=== PATIENT | female | born 1995 | race African-American/Black ===

== ENCOUNTER 2016-11-16 00:58 | Emergency (ER) | payer OTHER ==
[2016-11-16 01:12] VITALS: PULSE 100; O2SAT 99
[2016-11-16] MEDS ORDERED: Marcaine 0.5%/Epinephrine 10 ML IJ ONE (01:17)
[2016-11-16] MEDS ORDERED: BACIGUENT PACKET TP ONE (01:17)
[2016-11-16] MEDS ORDERED: Marcaine 0.5%/Epinephrine 10 ML ONE (01:24)
[2016-11-16] MEDS ORDERED: BACIGUENT PACKET ONE (01:24)
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
[2016-11-16] MEDS ORDERED: TYLENOL 325 MG PO STA (02:27)
[2016-11-16] MEDS ORDERED: TYLENOL 325 MG ONE (02:28)
[2016-11-16 03:05] VITALS: BP 134/68
== END 2016-11-16 02:58 | disposition home or self-care (01) ==
LOC: ED 00:58
PROC: 08QQXZZ Repair Right Lower Eyelid, External Approach (ICD-10-PCS; principal; 2016-11-16)
DX: S00.11XA Contusion of right eyelid and periocular area, initial encounter (principal); S01.81XA Laceration without foreign body of other part of head, initial encounter; S00.412A Abrasion of left ear, initial encounter; Y04.0XXA Assault by unarmed brawl or fight, initial encounter
CPT/HCPCS: 12013; 99283; 99284; A9270-GY

== ENCOUNTER 2016-11-21 16:15 | Emergency (ER) | payer OTHER ==
[2016-11-21 16:24] VITALS: BP 133/81
--- NOTE | 2016-11-21 16:39 | ERPHSYRPT ---
- History of Present Illness Time Seen by Provider: 11/21/16 16:29 Source: patient Exam Limitations: no limitations Patient Subjective Stated Complaint: here for suture removal Triage Nursing Assessment: pt has sutures below right eye, happened 7 days ago Physician History: The patient presents for removal of sutures under her right eye that were placed 7 days ago. She states her instructions wanted her to have them taken out in 3-5 days. Timing/Duration: day(s) (7) Quality: itchy Severity: mild Location: face Possible Causes: other (sutures) Associated Symptoms: denies symptoms Allergies/Adverse Reactions: No Known Drug Allergies Allergy (Verified 11/21/16 16:26) Home Medications: No Reportable Medications [No Reported Medications] 11/16/16 [History] Hx Tetanus, Diphtheria Vaccination/Date Given: Yes Hx Influenza Vaccination/Date Given: No Hx Pneumococcal Vaccination/Date Given: No Immunizations Up to Date: Yes - Review of Systems Constitutional: No Fever, No Chills Eyes: No Symptoms Ears, Nose, & Throat: No Symptoms Respiratory: No Cough, No Dyspnea Cardiac: No Chest Pain, No Edema, No Syncope Abdominal/Gastrointestinal: No Symptoms Genitourinary Symptoms: No Dysuria Musculoskeletal: No Back Pain, No Neck Pain Skin: Skin Lesions Neurological: No Symptoms Psychological: No Symptoms Endocrine: No Symptoms Hematologic/Lymphatic: No Symptoms Immunological/Allergic: No Symptoms All Other Systems: Reviewed and Negative - Past Medical History Pertinent Past Medical History: No - Past Surgical History Past Surgical History: Yes Other Surgical History: D AND C - Social History Smoking Status: Current every day smoker Exposure to second hand smoke: Yes Alcohol Use: Socially Drug Use: none Patient Lives Alone: No Significant Family History: no pertinent family hx - Female History Hx Last Menstrual Period: sep Hx Now: No - Nursing Vital Signs Nursing Vital Signs: Initial Vital Signs Temperature 97.6 F Temperature Source Oral Pulse Rate 55 Respiratory Rate 16 Blood Pressure [Right Arm] 133/81 Pain Intensity 0 - Physical Exam General Appearance: no apparent distress, alert Eye Exam: PERRL/EOMI Ears, Nose, Throat Exam: normal ENT inspection, pharynx normal, moist mucous membranes Neck Exam: normal inspection, non-tender, supple, full range of motion Respiratory Exam: normal breath sounds, lungs clear, No respiratory distress Cardiovascular Exam: regular rate/rhythm, normal heart sounds Gastrointestinal/Abdomen Exam: soft, mass, No tenderness Pelvic Exam: not done Rectal Exam: not done Back Exam: normal inspection, normal range of motion, No CVA tenderness, No vertebral tenderness Extremity Exam: normal inspection, normal range of motion Neurologic Exam: alert, oriented x 3, cooperative, normal mood/affect, sensation nml, No motor deficits Skin Exam: laceration (healing lac with running suture under right eye.) SpO2 Interpretation: normal SpO2: 94 Oxygen Delivery: Room Air - Progress Progress: unchanged - Departure Time of Disposition: 16:44 Departure Disposition: Home Clinical Impression: Healing laceration Condition: Stable Critical Care Time: No Additional Instructions: You have a facial laceration that is in the early stages of healing with a running suture in place. I recommend that she wait 2 more days before the sutures are removed.
[2016-11-21 16:57] VITALS: PULSE 78; O2SAT 97
== END 2016-11-21 16:57 | disposition home or self-care (01) ==
LOC: ED 16:15
DX: Z48.01 Encounter for change or removal of surgical wound dressing (principal)
CPT/HCPCS: 99281

== ENCOUNTER 2016-11-26 08:11 | Emergency (ER) | payer OTHER ==
[2016-11-26 08:24] VITALS: O2SAT 100
--- NOTE | 2016-11-26 09:18 | ERPHSYRPT ---
- History of Present Illness Time Seen by Provider: 11/26/16 08:51 Source: patient Patient Subjective Stated Complaint: stitches out Triage Nursing Assessment: stitches to below rt eye. well approximated- no drainage. Physician History: CC: wound check Hx: 21 y/o patient had 7 sutures placed under right eye on the infraorbital area per Dr Damon 10 days ago. She has done well. Tetanus up to date. No diploplia or blurred vision. No headaches or neck pain. Wound doing well. She came earlier in the week and was told to wait for suture removal. Allergies/Adverse Reactions: No Known Drug Allergies Allergy (Verified 11/26/16 08:24) Home Medications: No Reportable Medications [No Reported Medications] 11/16/16 [History] Hx Tetanus, Diphtheria Vaccination/Date Given: Yes Hx Influenza Vaccination/Date Given: No Hx Pneumococcal Vaccination/Date Given: No Immunizations Up to Date: Yes - Review of Systems Constitutional: No Fever Eyes: No Vision Changes, No Double Vision - Past Medical History Pertinent Past Medical History: No - Past Surgical History Past Surgical History: Yes Other Surgical History: D AND C - Social History Smoking Status: Current every day smoker Exposure to second hand smoke: No Alcohol Use: Socially Drug Use: none Patient Lives Alone: No Significant Family History: no pertinent family hx - Female History Hx Last Menstrual Period: 09/20 Hx Now: No - Nursing Vital Signs Nursing Vital Signs: Initial Vital Signs Temperature 98.7 F Temperature Source Oral Pulse Rate 60 Respiratory Rate 18 Blood Pressure [Right Arm] 110/68 Pain Intensity 0 - Physical Exam General Appearance: alert Eye Exam: PERRL/EOMI Ears, Nose, Throat Exam: moist mucous membranes Neck Exam: supple, No midline tenderness Neurologic Exam: alert, oriented x 3, cooperative Skin Exam: warm, dry, other (well healed laceration right cheek infraorbital area. Tiny 6-0 sutures removed per RN. Wound has no signo of infection.) SpO2: 100 Oxygen Delivery: Room Air - Course Nursing assessment & vital signs reviewed: Yes - Progress Progress Note: 11/26/16 09:19 Wound instr given. - Departure Time of Disposition: 09:19 Departure Disposition: Home Clinical Impression: Encounter for removal of sutures Condition: Stable Critical Care Time: No Referrals: DOCTOR,NO FAMILY [Primary Care Provider] - Instructions: Suture Removal
[2016-11-26 09:36] VITALS: BP 132/81; PULSE 81
== END 2016-11-26 09:35 | disposition home or self-care (01) ==
LOC: ED 08:11
DX: Z48.02 Encounter for removal of sutures (principal)
CPT/HCPCS: 99281